=== PATIENT | male | born 1985 | race Hispanic/Latino ===

== ENCOUNTER 2025-02-17 19:18 | Emergency (ER) | payer SELFPAY ==
[~2025-02-17] VITALS: Ht 170.2 cm; Wt 95.3 kg
[2025-02-17] MEDS: 0.9%NACL 1000ML 1,000 ML IV ONE (19:40)
[2025-02-17 19:47] LABS: IMMATURE GRANULOCYTE ABSOLUTE 0.10 K/uL (0-1); NUCLEATED RED BLOOD CELLS 0.0 % (0.0-0.19); PLATELET COUNT (AUTO) 355 K/uL (130-400); RED BLOOD CELL COUNT(AUTO) 6.18 MIL/uL (4.50-6.20); RED CELL DISTRIBUTION WIDTH 13.2 % (11.0-15.5); WHITE BLOOD COUNT (AUTO) 16.6 K/uL (4.8-10.8)
[2025-02-17 20:02] LABS: CREATININE 2.2 mg/dL (0.5-1.3); GLOMERULAR FILTR. RATE CALC 38.0 mL/min (>90); GLUCOSE,RANDOM 127.0 mg/dL (70-105); SODIUM SERUM 133.0 mmol/L (136-145); UREA NITROGEN, BLOOD 22.0 mg/dL (7-18)
--- NOTE | 2025-02-17 20:10 | ERN ---
CONSULTATION NOTE DATE OF ER CONSULTATION: DATE: 02/17/25 HISTORY OF PRESENT ILLNESS: Mr Reyes is a 39-year-old male who comes in today with a chief complaint of shortness of breath and chest pain. 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 Patient's initial EKG shows some LVH sinus tachycardia. Patient has had decreased urine output. Patient is diaphoretic and sweaty. ALLERGIES: Coded Allergies: No Known Allergies (Unverified Allergy, Unknown, 02/17/25) VITAL SIGNS Vital Signs Date Time Temp Pulse Resp B/P (MAP) Pulse Ox O2 Delivery O2 Flow Rate FiO2 02/17/25 19:22 99.7 105 20 132/88 98 Room Air REVIEW OF SYSTEMS Constitutional: Negative for fever,chills, and weight loss Eyes: Negative for injury, pain,redness, and discharge ENT: Negative for injury,pain or swelling Cardiovascular: Positive for chest pain Respiratory: Positive for shortness of breath Abdomen/GI: Negative for abdominal pain, nausea, vomiting, diarrhea, and constipation Back: Negative for injury and pain : Negative for injury, bleeding and discharge MS/Extremity: Negative for injury and deformity Skin: Negative for rash, and discoloration Neuro: Negative for headache, weakness, numbness, tingling, and seizure Psych: Negative for suicide ideation, homicidal ideation, and hallucinations PHYSICAL EXAM General: diaphoretic Head/Face: Normocephalic, atraumatic Eyes: PERRL, EOMI, vision at baseline ENT: oral cavity clear, TMs clear, no signs of infection Neck: Trachea midline, supple, no nuchal rigidity Cardiovascular: Tachycardic normal S1-S2 Respiratory: Tachypneic Abdomen: Soft, non-tender, non-distended, normal bowel sounds, no guarding or rebound. Skin: Warm, dry, normal turgor, no rash MS/Extremity: Pulses equal, no cyanosis, neurovascular intact, FROM Neuro: COAx4, GCS 15, strength 5/5, CN 2-12 intact Psych: Normal behavior, mood, and affect normal LABORATORY RESULTS Laboratory Tests 02/17/25 19:37: White Blood Count 16.6, Red Blood Count 6.18, Hemoglobin 17.5, Hematocrit 50.9, Mean Corpuscular Volume 82.4, Mean Corpuscular Hemoglobin 28.3, Mean Corpuscular Hemoglobin Concent 34.4, Red Cell Distribution Width 13.2, Platelet Count 355, Mean Platelet Volume 9.9, Immature Granulocyte % (Auto) 0.6, Neutrophils (%) (Auto) 84.2, Lymphocytes (%) (Auto) 10.0, Monocytes (%) (Auto) 4.7, Eosinophils (%) (Auto) 0.1, Basophils (%) (Auto) 0.4, Neutrophils # (Auto) 14.0, Lymphocytes # (Auto) 1.7, Monocytes # (Auto) 0.8, Eosinophils # (Auto) 0.01, Basophils # (Auto) 0.07, Absolute Immature Granulocyte (auto 0.10, Nucleated Red Blood Cells 0.0, Sodium Level 133, Potassium Level 5.1, Chloride Level 95, Carbon Dioxide Level 21, Blood Urea Nitrogen 22, Creatinine 2.2, Glomerular Filtration Rate Calc 38, Random Glucose 127, Total Calcium 10.2 PROBLEM LIST: (1) Hyperlipidemia ICD Codes: E78.5 - Hyperlipidemia, unspecified (2) Acute kidney injury ICD Codes: N17.9 - Acute kidney failure, unspecified (3) Rhabdomyolysis ICD Codes: M62.82 - Rhabdomyolysis PLAN MDM: Patient has CT findings of his lungs and he be followed as an outpatient. Patient will need to see a acute coordinator for his pulmonary nodules. Patient will be given pravastatin for hydrate was rates Differential diagnosis: Rationale: Tests considered and ordered secondary to shared decision making include: Previous outside records reviewed: Old ER visits. Risk of complication and/or morbidity or mortality of patient management: None Medications-Per medication reconciliation Need for hospitalization: Patient does not meet criteria for hospitalization. Need for emergency major/minor surgery: No There are no social concerns with this patient. Prescription drug management Prescriptions will include symptomatic care Patient's prior external medical records from other ER visits were reviewed by me as indicated. Prior testing and results from previous visits were reviewed. Prior tests were taken into account with medical decision making and resource utilization, independent historian/historians were used to obtain complete medical history. I independently interpreted the test that were performed, results were reviewed by me and considered findings on radiology if ordered. Medical management and examination interpretation discussions were had by me with other qualified healthcare professionals as indicated for the patient's care. LEONARDO BARROSO MD Feb 17, 2025 20:10
[2025-02-17 20:13] LABS: CREATINE KINASE, TOTAL 145.0 U/L (21-232); LDL DIRECT 118.0 mg/dL (0-99)
--- NOTE | 2025-02-17 20:15 | HMCIMG ---
EXAM: CR Chest, 1 View. CLINICAL HISTORY: SOB COMPARISON: None provided. FINDINGS: LUNGS: There is no mass, infiltrate, or acute pulmonary abnormality. PLEURAL SPACES: No evidence of pleural effusion or pneumothorax. MEDIASTINUM: The cardiomediastinal silhouette is within normal limits. BONES: No aggressive appearing osseous lesion seen. IMPRESSION: No acute cardiopulmonary pathology is evident. /Boring
[2025-02-17] MEDS: 0.9%NACL 1000ML 1,323 ML IV ONE (20:27)
[2025-02-17 20:33] LABS: ADD UA MICROSCOPIC YES; APPEARANCE,URINE CLOUDY (CLEAR); GLUCOSE, URINE (UA) NEGATIVE (NEGATIVE); LEUKOCYTE ESTERASE ,URINE NEGATIVE Leu/uL (NEGATIVE); NITRATE,URINE NEGATIVE (NEGATIVE); OCCULT BLOOD,URINE +- (TRACE) (NEGATIVE)
[2025-02-17 20:37] LABS: CALCIUM OXALATE CRYSTALS,UR RARE /LPF (None Seen); HYALINE CASTS, URINE 26-50 /LPF (0-1 /LPF); OTHER CASTS, URINE 116 /LPF (None Seen); SQUAMOUS EPITHELIAL CELL,UR FEW /HPF (0-2); UNCLASSIFIED CRYSTAL 5 /HPF (None Seen)
[2025-02-17 20:41] LABS: AMPHET/METH SCREEN,URINE NEGATIVE (NEGATIVE); BARBITURATE SCREEN, URINE NEGATIVE (NEGATIVE); CANNABINOID SCREEN,URINE NEGATIVE (NEGATIVE); COCAINE SCREEN,URINE NEGATIVE (NEGATIVE)
[2025-02-17 21:24] LABS: CREATININE 1.4 mg/dL (0.5-1.3); GLOMERULAR FILTR. RATE CALC 66.0 mL/min (>90); GLUCOSE,RANDOM 118.0 mg/dL (70-105); SODIUM SERUM 136.0 mmol/L (136-145); UREA NITROGEN, BLOOD 21.0 mg/dL (7-18)
[2025-02-17] MEDS ORDERED: IOHEXOL-350 75 ML VIAL IV ONE (21:37)
--- NOTE | 2025-02-17 21:41 | NUR ---
PT TO CT AT THIS TIME
[2025-02-17] MEDS: LACTATED RINGERS IV ONE (22:03)
--- NOTE | 2025-02-17 22:53 | HMCIMG ---
EXAM: CTA examination of the chest. CLINICAL HISTORY: Shortness of breath TECHNIQUE: Post-contrast thin collimated axial CTA images of the chest were obtained, with sagittal and coronal reformatted images also submitted. A CT scan is done according to ALARA (As Low as Reasonably Achievable). COMPARISON: Same-day chest radiograph. FINDINGS: Linear fibrotic band in the anterior basal segment of the right lower lobe and a 2 mm nodule along the right major fissure. A 5 mm groundglass nodule in the superior segment of the right lower lobe abutting the right major fissure. No acute infiltrates or effusion. No pericardial effusion. The heart size is within normal limits. Coronary vessels and intrathoracic aorta are grossly normal. No thoracic aortic aneurysm or dissection. No filling defect or pulmonary thromboembolism. No axillary, supraclavicular, or mediastinal lymphadenopathy. No focal thyroid abnormality. Mild hiatus hernia. Mild hepatosplenomegaly. Mild fatty infiltration of the liver. The remainder of the visualized upper abdomen is unremarkable. No acute or suspicious osseous abnormality. IMPRESSION: No pulmonary thromboembolism. Linear fibrotic band in the anterior basal segment of the right lower lobe and a 2 mm nodule along the right major fissure. No acute infiltrates or effusion. A 5 mm groundglass nodule in the superior segment of the right lower lobe abutting the right major fissure. Recommended follow-up CT chest in 12 months. Mild splenomegaly. Mild fatty infiltration of the liver. Mild hiatus hernia. /[place]
--- NOTE | 2025-02-17 23:32 | ERN ---
General Chief Complaint: Muscle Spasm Stated Complaint: C/O MUSCLE SPASMS, CRAMPING TO BODY WITH CP Time Seen by MD: 19:22 History of Present Illness Initial Comments Patient here for muscle spasms cramping chest pain. Patient comes in with shortness of breath. Been working out doing reduced. Patient is diaphoretic. Allergies: Coded Allergies: No Known Allergies (Unverified Allergy, Unknown, 02/17/25) Past Medical History Past Medical History: Hypertension Past Surgical History: None ROS Dictation Please see previous note Physical Exam Physical Exam Dictation Please see previous note Results Laboratory and Microbiology Lab and Micro Result Laboratory Tests Test 02/17/25 19:37 02/17/25 20:22 02/17/25 21:10 White Blood Count 16.6 K/uL (4.8-10.8) H Red Blood Count 6.18 MIL/uL (4.50-6.20) Hemoglobin 17.5 g/dL (14.0-18.0) Hematocrit 50.9 % (42-54) Mean Corpuscular Volume 82.4 fL (79-99) Mean Corpuscular Hemoglobin 28.3 pg (27.0-33.0) Mean Corpuscular Hemoglobin Concent 34.4 g/dL (32.0-36.0) Red Cell Distribution Width 13.2 % (11.0-15.5) Platelet Count 355 K/uL (130-400) Mean Platelet Volume 9.9 fL (7.5-10.5) Immature Granulocyte % (Auto) 0.6 % (0-1) Neutrophils (%) (Auto) 84.2 % (40.0-77.0) H Lymphocytes (%) (Auto) 10.0 % (21.0-51.0) L Monocytes (%) (Auto) 4.7 % (3.0-13.0) Eosinophils (%) (Auto) 0.1 % (0.0-8.0) Basophils (%) (Auto) 0.4 % (0.0-5.0) Neutrophils # (Auto) 14.0 K/uL (1.8-7.7) H Lymphocytes # (Auto) 1.7 K/uL (1.0-4.8) Monocytes # (Auto) 0.8 K/uL (0.1-1.0) Eosinophils # (Auto) 0.01 K/uL (0.00-0.70) Basophils # (Auto) 0.07 K/uL (0.00-0.20) Absolute Immature Granulocyte (auto 0.10 K/uL (0-1) Nucleated Red Blood Cells 0.0 % (0.0-0.19) White Cell Morphology Comment See comments D-Dimer Quantitative (PE/DVT) 95 ng/mL (0-500) Sodium Level 133 mmol/L (136-145) L 136 mmol/L (136-145) Potassium Level 5.1 mmol/L (3.5-5.1) 5.3 mmol/L (3.5-5.1) H Chloride Level 95 mmol/L (101-111) L 103 mmol/L (101-111) Carbon Dioxide Level 21 mmol/L (21-32) 26 mmol/L (21-32) Blood Urea Nitrogen 22 mg/dL (7-18) H 21 mg/dL (7-18) H Creatinine 2.2 mg/dL (0.5-1.3) H 1.4 mg/dL (0.5-1.3) H Glomerular Filtration Rate Calc 38 mL/min (>90) 66 mL/min (>90) Random Glucose 127 mg/dL (70-105) H 118 mg/dL (70-105) H Total Calcium 10.2 mg/dL (8.5-10.1) H 8.4 mg/dL (8.5-10.1) L Magnesium Level 2.20 mg/dL (1.80-2.40) Total Creatine Kinase 145 U/L (21-232) Troponin I High Sensitivity 33 ng/L (4-75) 24 ng/L (4-75) RT-Rvy-Q-Type Natriuretic Peptide 113 pg/mL (0-125) Triglycerides Level 420 mg/dL (30-200) H Cholesterol Level 247 mg/dL (<200) H LDL Cholesterol 118 mg/dL (0-99) H HDL Cholesterol 51 mg/dL (29-71) Urine Color YELLOW (YELLOW) Urine Appearance CLOUDY (CLEAR) H Urine pH 5.5 (5.0-8.0) Urine Specific Grace 1.024 (1.001-1.031) Urine Protein 50 mg/dL (NEGATIVE) H Urine Glucose (UA) NEGATIVE mg/dL (NEGATIVE) Urine Ketones NEGATIVE mg/dL (NEGATIVE) Urine Occult Blood +- (TRACE) (NEGATIVE) H Urine Nitrate NEGATIVE (NEGATIVE) Urine Bilirubin NEGATIVE mg/dL (NEGATIVE) Urine Urobilinogen 0.2 mg/dL (0.2-1.0) Urine Leukocyte Esterase NEGATIVE Bethany/uL Urine RBC 2-5 /HPF (0-1) H Urine WBC 2-5 /HPF (0-1) H Urine Squamous Epithelial Cells FEW /HPF (0-2) Urine Calcium Oxalate Crystals RARE /LPF (None Seen) Urine Uric Acid Crystals FEW /LPF (None Seen) Urine Other Crystals (Auto) 5 /HPF (None Seen) Urine Bacteria FEW /HPF (None Seen) Urine Hyaline Casts 26-50 /LPF (0-1 /LPF) H Urine Other Casts 116 /LPF (None Seen) Urine Opiates Screen NEGATIVE (NEGATIVE) Urine Barbiturates Screen NEGATIVE (NEGATIVE) Urine Phencyclidine Screen NEGATIVE (NEGATIVE) Urine Amphetamines Screen NEGATIVE (NEGATIVE) Urine Benzodiazepines Screen NEGATIVE (NEGATIVE) Urine Cocaine Screen NEGATIVE (NEGATIVE) Urine Marijuana (THC) Screen NEGATIVE (NEGATIVE) MDM Please see previous note patient will be discharged ED Course Orders Procedure Category Date Status Time Cbc With Differential LAB 02/17/25 Complete 19:23 12 Lead Ekg Tracing- EKG 02/17/25 Logged Technical 19:23 0.9%Nacl 1000ml (Ns PHA 02/17/25 Complete 1000ml) 19:30 Urinalysis Profile LAB 02/17/25 Complete 19:23 Drug Screen Urine LAB 02/17/25 Complete 19:23 Lipid Panel LAB 02/17/25 Complete 19:24 Chest 1vw RAD 02/17/25 Resulted 19:24 Magnesium LAB 02/17/25 Complete 19:24 Troponin I High LAB 02/17/25 Complete Sensitivity 19:24 Basic Metabolic Panel LAB 02/17/25 Complete 19:24 Probnp LAB 02/17/25 Complete 19:24 Creatine Kinase, Total LAB 02/17/25 Complete 19:37 D-Dimer LAB 02/17/25 Complete 20:16 Troponin I High LAB 02/17/25 Complete Sensitivity 20:16 0.9%Nacl 1000ml (Ns PHA 02/17/25 Complete 1000ml) 20:30 Basic Metabolic Panel LAB 02/17/25 Complete 21:11 Ct Chest Pe Protocol CT 8/6/25 Resulted Wwo Cont 21:33 Lactated Ringers PHA 02/17/25 In Process 1000ml (Lactated 22:00 Iohexol (Omnipaque) PHA 02/17/25 Complete 21:37 Current Medications Medications (Trade) Dose Ordered Sig/Sage Route PRN Reason Start Time Stop Time Status Last Admin Dose Admin Iohexol (Omnipaque) 75 ml STK-MED ONCE IV 02/17/25 21:37 02/17/25 21:39 DC Lactated Ringer's 660 ml @ 220 mls/hr ONCE ONCE IV 02/17/25 22:00 02/18/25 00:59 02/17/25 22:03 Sodium Chloride 1,000 ml @ 0 mls/hr ONCE ONCE IV 02/17/25 19:30 02/17/25 19:31 DC 02/17/25 19:40 Sodium Chloride 1,323 ml @ 441 mls/hr ONCE ONCE IV 02/17/25 20:30 02/17/25 23:29 DC 02/17/25 20:27 Vital Signs Date Time Temp Pulse Resp B/P (MAP) Pulse Ox O2 Delivery O2 Flow Rate FiO2 02/17/25 23:57 98.4 88 17 136/87 98 Room Air* 0 02/17/25 23:10 98.8 85 16 139/80 98 Room Air* 0 02/17/25 22:00 98.8 87 18 138/81 97 Room Air* 0 02/17/25 20:58 99.1 90 15 142/85 99 Room Air* 0 02/17/25 20:07 99.5 93 17 129/83 98 Room Air* 0 02/17/25 19:34 99.7 105 20 132/88 98 Room Air* 0 02/17/25 19:22 99.7 105 20 132/88 98 Room Air DX & DISP Disposition: Discharge Departure Impression: Primary Impression: Rhabdomyolysis Additional Impressions: Acute kidney injury, Hyperlipidemia Condition: Stable Referrals: NONE (PCP) LEONARDO BARROSO MD Feb 17, 2025 23:31
[2025-02-17 23:57] VITALS: BP 136/87; PULSE 88; RESP 17; TEMP 98.4; O2SAT 98
--- NOTE | 2025-02-18 06:44 | EKG ---
[facility] Test Date: 2025-02-17 Test Time: 19:19:49 Pat Name: MARION GEORGE Department: ED Room: Gender: M Trailer Chief: [id number] : 1985 Requested By: JOHN GOOD Order Number: [id number] Reading MD: Sara East Measurements Intervals Hume Rate: 103 P: 22 CO: 157 QRS: -35 QRSD: 85 T: 42 QT: 307 QTc: 403 Interpretive Statements Sinus tachycardia Probable left ventricular hypertrophy ST elevation suggests acute pericarditis No previous ECG available for comparison Electronically Signed On 02-18-2025 08:15:09 CDT by Sara East Please click the below link to view image of tracing.
== END 2025-02-17 23:59 | disposition home or self-care (01) ==
LOC: EDH 19:18
DX: M62.82 Rhabdomyolysis (principal); N17.9 Acute kidney failure, unspecified; E78.5 Hyperlipidemia, unspecified; R06.02 Shortness of breath; R07.89 Other chest pain; I10 Essential (primary) hypertension
CPT/HCPCS: 99285; 71270; 71045; 80061; 82550; 83735; 84484 ×2; 80048 ×2; 83880; 80305; 85025; 85378; 81001; 36415; 93005; J7120; J7030 ×3; Q9967